=== PATIENT | female | born 1985 | race Caucasian/White ===

== ENCOUNTER 2016-05-18 14:30 | Inpatient (IN) | payer MEDICAID ==
[~2016-05-18] VITALS: Ht 160 cm; Wt 84.0 kg
[2016-05-18] MEDS ORDERED: METHYLERGONOVINE 0.2 MG INJ IM PRN (15:00)
[2016-05-18] MEDS ORDERED: LIDOCAINE 1% (MPF) 30 ML INJ INJ PRN (15:00)
[2016-05-18] MEDS ORDERED: MISOPROSTOL 200 MCG TAB PR PRN (15:00)
[2016-05-18] MEDS ORDERED: OXYTOCIN 30 UNITS/LR 500 ML IV PRN (15:00)
[2016-05-18] MEDS ORDERED: CARBOPROST 250 MCG INJ IM PRN (15:00)
[2016-05-18] MEDS ORDERED: OXYTOCIN 30 UNITS/LR 500 ML IV SCH ×2 (15:00)
[2016-05-18] MEDS ORDERED: IBUPROFEN 600 MG TAB PO PRN (15:00)
[2016-05-18 15:16] VITALS: Ht 160 cm; Wt 84.0 kg
[2016-05-18] MEDS: LACTATED RINGER'S 1,000 ML IV SCH ×2 (15:17→21:05)
[2016-05-18 15:50] LABS: BASOPHILS % 0.4 % (0.0-2.0); EOSINOPHILS # 0.1 10^3/ul (0.0-0.5); EOSINOPHILS % 1.4 % (0.0-7.0); HEMATOCRIT 36.5 % (37.0-47.0); HEMOGLOBIN 12.2 g/dl (12.0-16.0); INR 0.93; LYMPHOCYTES # 1.2 10^3/ul (0.8-2.9); LYMPHOCYTES % 14.1 % (15.0-51.0); MEAN CORPUSCULAR HEMOGLOBIN 26.9 pg (29.0-33.0); MEAN CORPUSCULAR HGB CONC 33.3 g/dl (32.0-37.0); MEAN CORPUSCULAR VOLUME 80.7 fl (82.0-101.0); MEAN PLATELET VOLUME 9.3 fl (7.4-10.4); MONOCYTE # 0.7 10^3/ul (0.3-0.9); MONOCYTES % 8.7 % (0.0-11.0); NEUTROPHIL # 6.2 10^3/ul (1.6-7.5); NEUTROPHILS % 75.4 % (39.0-77.0); PLATELET COUNT 248 10^3/UL (140-440); PROTIME 12.5 Sec (12.2-14.2); RED BLOOD COUNT 4.53 10^6/ul (4.20-5.40); RED CELL DISTRIBUTION WIDTH 14.9 % (11.5-14.5); UNCORRECTED WBC 8.3 10^3/ul (4.8-10.8); WHITE BLOOD COUNT 8.3 10^3/ul (4.8-10.8)
[2016-05-18 15:57] LABS: CONDITION 1; LH ANALYZER COMMENTS 1
[2016-05-18] MEDS ORDERED: LACTATED RINGER'S 1,000 ML IV PRN (20:00)
[2016-05-18] MEDS: BUTORPHANOL 2 MG INJ IV PRN ×2 (21:02→23:11)
[2016-05-19] MEDS ORDERED: TERBUTALINE 1 ML ONE (00:20)
[2016-05-19] MEDS ORDERED: TERBUTALINE 1 MG/ML INJ SC ONE (00:30)
[2016-05-19] MEDS: LACTATED RINGER'S 1,000 ML IV SCH (00:47)
[2016-05-19] MEDS ORDERED: OXYTOCIN 30 UNITS/LR 500 ML IV SCH (01:56)
[2016-05-19] MEDS: LACTATED RINGER'S 1,000 ML IV* SCH ×2 (01:56→06:51)
[2016-05-19] MEDS ORDERED: MISOPROSTOL 200 MCG TAB PR PRN (02:00)
[2016-05-19] MEDS ORDERED: METHYLERGONOVINE 0.2 MG INJ IM PRN (02:00)
[2016-05-19] MEDS ORDERED: OXYCODONE/ASPIRIN (4.88/325) TAB PO PRN (02:00)
[2016-05-19] MEDS ORDERED: OXYTOCIN 30 UNITS/LR 500 ML IV PRN (02:00)
[2016-05-19] MEDS ORDERED: LANOLIN 7 GM TUBE TOP PRN (02:00)
[2016-05-19] MEDS ORDERED: CARBOPROST 250 MCG INJ IM PRN (02:00)
--- NOTE | 2016-05-19 02:01 | LDN ---
Date/Time of Note Date/Time of Note DATE: 05/19/16 TIME: 01:59 Delivery Summary of a viable baby boy weighing 3870 grams, or 8# 9oz, 20" long, and with Apgars of 8/9. Placenta Delivered: Spontaneously Meconium: none Perineum intact?: Yes Anesthesia type: None Sponge & Needle done & correct: Yes All needle counts correct: Yes Any foreign bodies felt in the: No (vagina) Problems: Delivery Information Sex Infant Sex: male Apgars 1 Minute: 8 5 Minute: 9 Suctioning Nose & mouth suctioned at shanti: Yes Delee suction performed: No Umbilical Cord Umbilical cord with: 3 Vessels Cord presentations: nuchal cord Nuchal cord present X: 1 Cord Blood was obtained: Yes Mother & Baby Disposition Disposition Mom & Baby to Maternity; Good: Yes Baby to NICU: No MARITZA ROSADO MD May 19, 2016 02:01
--- NOTE | 2016-05-19 02:07 | HP ---
Date/Time of Note Date/Time of Note DATE: 05/19/16 TIME: 02:01 OB - History Hx of Present Free Text/Dictation 30 y.o. with an IUP at 41 weeks admitted today for an induction with pitocin. Estimated Due Date: May 11, 2016 : 2 Para: 1 Care: Good Care Ultrasounds: Normal mid trimester US Obstetrical Complications: None Medical Complications: None Past Family/Social History * Past Medical, Surgical, Family and Obstetric Histories reviewed from chart. Blood Type: O+ Rubella: immune RPR/VDRL: Negative GBS Status: Negative HBsAG: Negative OB Admission Exam Vital Signs Vital Signs BP 125/71 T= 98.0 Physical Exam HEENT: WNL Heart: Rhythm Normal Lungs: Clear Abdomen: WNL Extremities: Edema (1+) Reflexes: Normal Cervical Dilatation: 2cm Effacement: Other (60%) Station: -2 Membranes: Intact Amniotic Fluid: Clear Heart Rate: 130's Accelerations: Accelerations Present Decelerations: No Decelerations Varibility: Moderate Contractions on Admission: >10 Minutes Apart Last 72 hours Lab Results CBC & BMP 05/18/16 15:02 OB Assessment/Plan Reason for admission: induction of labor, other (postdates) Plan: Induction Induction Method: per Pitocin Protocol MAIRTZA ROSADO MD May 19, 2016 02:07
[2016-05-19 04:00] VITALS: BP 119/58; PULSE 66; RESP 18
[2016-05-19] MEDS: IBUPROFEN 600 MG TAB PO SCH ×4 (06:13→23:57)
[2016-05-19 08:30] VITALS: BP 102/58; PULSE 76; RESP 18
[2016-05-19 12:00] VITALS: BP 105/53; PULSE 81; RESP 18
[2016-05-19 16:36] VITALS: BP 100/51; PULSE 83; RESP 83
[2016-05-19 16:41] VITALS: BP 103/56; PULSE 86; RESP 18
[2016-05-19 21:30] VITALS: BP 107/56; PULSE 82; RESP 18
[2016-05-20 04:00] VITALS: BP 99/53; PULSE 77; RESP 18
[2016-05-20] MEDS: IBUPROFEN 600 MG TAB PO SCH ×3 (05:45→17:37)
[2016-05-20 07:33] LABS: BASOPHILS % 0.5 % (0.0-2.0); EOSINOPHILS # 0.2 10^3/ul (0.0-0.5); EOSINOPHILS % 2.4 % (0.0-7.0); HEMATOCRIT 31.9 % (37.0-47.0); HEMOGLOBIN 10.7 g/dl (12.0-16.0); LYMPHOCYTES # 2.4 10^3/ul (0.8-2.9); LYMPHOCYTES % 25.6 % (15.0-51.0); MEAN CORPUSCULAR HGB CONC 33.5 g/dl (32.0-37.0); MEAN CORPUSCULAR VOLUME 80.4 fl (82.0-101.0); MEAN PLATELET VOLUME 8.9 fl (7.4-10.4); MONOCYTE # 0.7 10^3/ul (0.3-0.9); NEUTROPHILS % 64.5 % (39.0-77.0); PLATELET COUNT 206 10^3/UL (140-440); RED BLOOD COUNT 3.97 10^6/ul (4.20-5.40); UNCORRECTED WBC 9.3 10^3/ul (4.8-10.8); WHITE BLOOD COUNT 9.3 10^3/ul (4.8-10.8)
[2016-05-20 07:57] LABS: CONDITION 1; LH ANALYZER COMMENTS 1
[2016-05-20 08:00] VITALS: BP 103/56; PULSE 83; RESP 18
--- NOTE | 2016-05-20 14:02 | PN ---
Date/Time of Note Date/Time of Note DATE: 05/20/16 TIME: 14:01 OB Subjective Subjective Subjective day 1 Afebrile, abdomen soft, uterus firm, lochia normal, extremity normal. OB Assessment/Plan Induction Method: other (plan of discharge a.m. discussed with the patient) NIKA GUTIERREZ MD May 20, 2016 14:02
[2016-05-20 16:00] VITALS: BP 109/62; PULSE 80; RESP 18
[2016-05-20 20:00] VITALS: BP 122/60; PULSE 77; RESP 18
[2016-05-21] MEDS: IBUPROFEN 600 MG TAB PO SCH ×3 (00:12→12:22)
[2016-05-21 04:25] VITALS: BP 111/62; PULSE 78; RESP 18
[2016-05-21 07:40] VITALS: BP 97/56; PULSE 69; RESP 20
[2016-05-21] MEDS ORDERED: DIPHTH/TET/ACEL PERTUSS (ADULT) 0.5 ML VIAL IM* ONE (09:00)
--- NOTE | 2016-05-21 09:07 | PD.PPDC ---
SOLAR PANEL INSTALLER Discharge Instruction Condition Patient Condition: Good Diet Diet: Resume Regular Diet Follow-up Follow-up with Physician: 2, Week/Weeks Return to clinic for HOGSHEAD COOPER Instructions: Fever greater than 101 Worsening abdominal pain More than 2 pads per hour OB Instructions: Breast Tenderness Blurried Vision Headache NIKA GUTIERREZ MD May 21, 2016 09:07
--- NOTE | 2016-05-21 09:10 | DS ---
Date/Time of Note Date/Time of Note DATE: 05/21/16 TIME: 09:08 Obstetrical Discharge Record Final Diagnosis Final Diagnosis: Term delivered Vaginal Delivery Obstetrical Delivery: Spontaneous Condition on Discharge Physical Assessment Last Vitals: Day 2 post normal vaginal delivery afebrile vital sign stable, abdomen soft, uterus firm, lochia normal, no complaint of urination or of bowel movement discharged home with a follow-up instructions to be seen at the clinic in 2 weeks advised to continue taking vitamin and iron supplement Voiding: Yes Bowel Movement: Yes Breast: Soft, non-tender, Filling Fundus: Firm Calf Tenderness: No Patient Condition: Good NIKA GUTIERREZ MD May 21, 2016 09:10
--- NOTE | 2016-05-21 21:28 | NSTRPT ---
NST Information Datetime Report Generated by CPN: 05/21/2016 21:28 Datetime: 05/16/2016 10:30 NST Information EGA: 40.5 Test Number: 8 Time on Monitor: 05/16/2016 11:03 Time off Monitor: 05/16/2016 11:28 NST Duration (Min): 25 Reason for NST: Other Reason for NST Other: Abnormal AFP/ post dates Test and Monitor Explained: Monitor Explained; Test Explained; Verbalized Understanding Pulse: 97 Resp: 19 SBP: 123 DBP: 62 Test Evaluation NST Interventions: None Patient States Movement: Present Contraction Frequency: x1 FHR Baseline : 130 Variability: Moderate 6-25bpm Accelerations: 15X15 Decelerations: None FHR Category: Category I NST Results: Reactive Comments: pt to u/s. MARK 16.7, cephalic Pt to be induced on 05/18/16. 1130-Pt Home undelivered with LABOR precautions. Kick Count in structions reviewed. Pt states understanding. No further questions asked at this time. Electronically Signed By E-Signature: with User ID: [id number] Datetime: 05/13/2016 13:51 NST Information EGA: 40.2 NST Duration (Min): 25 Datetime: 05/09/2016 08:47 NST Information EGA: 39.5 NST Duration (Min): 23 Datetime: 05/06/2016 13:44 NST Information EGA: 39.2 NST Duration (Min): 27 Datetime: 05/02/2016 08:30 NST Information EGA: 38.5 NST Duration (Min): 38 Datetime: 04/29/2016 09:54 NST Information EGA: 38.2 NST Duration (Min): 35 Datetime: 04/25/2016 08:35 NST Information EGA: 37.5 NST Duration (Min): 29 Datetime: 04/22/2016 13:08 NST Information EGA: 37.2 Datetime: 04/22/2016 13:02 NST Duration (Min): 28
== END 2016-05-21 13:50 | disposition home or self-care (01) | DRG 775 ==
LOC: L-D 14:30 → PP1 05-19 03:44
PROVIDERS: ADMIT Obstetrics & Gynecology; ATTEND Obstetrics & Gynecology
PROC: 3E033VJ Introduction of Other Hormone into Peripheral Vein, Percutaneous Approach (ICD-10-PCS; 2016-05-18)
PROC: 10E0XZZ Delivery of Products of Conception, External Approach (ICD-10-PCS; principal; 2016-05-19)
DX: O48.0 Post-term pregnancy (principal); O69.1XX0 Labor and delivery complicated by cord around neck, with compression, not applicable or unspecified; Z3A.41 41 weeks gestation of pregnancy; Z37.0 Single live birth
CPT/HCPCS: 85025; 85610; 85730; 86592; 86900; 86901; 87340; 90715; 99464; J2590; J3105; J7120

== ENCOUNTER 2016-05-24 23:43 | Inpatient (IN) | payer MEDICAID ==
[~2016-05-24] VITALS: Ht 165.1 cm; Wt 70.0 kg
[2016-05-24 23:48] VITALS: Ht 165.1 cm; Wt 70.0 kg
[2016-05-25] VITALS (13 sets, daily range): BP systolic 95–132; BP diastolic 58–78; PULSE 64–92; RESP 19–29
[2016-05-25] MEDS ORDERED: SOD CHLORIDE 0.9% 1,000 ML IV STA (00:12)
[2016-05-25 00:50] LABS: ALBUMIN 3.2 g/dl (3.3-4.9)
--- NOTE | 2016-05-25 00:50 | HP ---
Date/Time of Note Date/Time of Note DATE: 05/25/16 TIME: 00:44 Assessment/Plan VTE Prophylaxis VTE Prophylaxis Intervention: ambulation, SCD's Lines/Catheters IV Catheter Type (from [facility]): Peripheral IV Assessment/Plan Chief Complaint/Hosp Course Delayed Hemorrhage Retained Products of Conception Problems: Assessment/Plan Discussed with pt results of U/S. Likely hemorrhage 2/2 retained products of conception. Recommend evacuating the uterus with D&C. Risks, benefits and alternatives of planned procedure were discussed with the patient in detail, including the risks of pain, infection, damage to nearby organs/tissues/ structures, uterine perforation possibly requiring exploratory laparotomy and bleeding possibly requiring blood transfusion or hysterectomy. Blood transfusion risks, including infectious risks and transfusion-related reactions also discussed. Consent process performed with Macedonian interpretation from ED ROMEO Olguin. Written consent for procedure obtained. NPO in anticipation of procedure. Pt w/2 IVs and typed and crossed x2u PRBCs OR contacted. Will proceed to OR for procedure [facility] Will admit postop for observation of bleeding, repeat CBC and monitoring of sxs Primary OB, Dr. Mondragon will be notified of pt procedure and admission. HPI/ROS Admit Date/Time Admit Date/Time Hx of Present Illness INFECTION CONTROL NURSE Pt is a 30yo on PPD#5 s/p uncomplicated and intact perineum at 41wks GA who presents with new onset of heavy vaginal bleeding. Pt states bleeding started approximately 2hrs ago and since that time she has used 10 pads. +clots and dizziness as well. Prior to this evening, pt states her bleeding was normal. Also c/o abdominal cramping. She has been taking Ibuprofen for pain. Denies fevers or chills at home. No abnormal vaginal discharge. Patient's course was uncomplicated and pt was discharged home on PPD# 2. Hemoglobin post-delivery 10.7 PROCEDURE: Ultrasound examination of the pelvis CLINICAL INDICATION: Vaginal hemorrhage status post delivery TECHNIQUE: Ultrasound examination of the pelvis. COMPARISON: None FINDINGS: Thickened endometrium measures 55 mm, perhaps representing retained products of conception. Uterus measures 171 x 102 x 131 mm. Right ovary measures 37 x 21 x 32 mm. The left ovary is not visualized. Small amount of free fluid in the right adnexa IMPRESSION: 55 mm thickness of the endometrium suggests retained products of conception. PMH/Family/Social Past Medical History Medical History: no pertinent history Past Surgical History Past Surgical Hx: no surgical history Family History Significant Family History: no pertinent family hx Social History Alcohol Use: none Smoking Status: Never smoker Drug Use: none Exam/Review of Systems Vital Signs Vitals Vital Signs Date Time Temp Pulse Resp B/P Pulse Ox O2 Delivery O2 Flow Rate FiO2 05/25/16 00:15 75 19 135/78 97 Room Air 05/24/16 23:48 99.0 Exam Constitutional: alert, distress (extremely afraid due to the bleeding), oriented Respiratory: clear to auscultation Cardiovascular: regular rate and rhythm Gastrointestinal: bowel sounds, other (FF 1FB below umbilicus), soft, tender ( mild TTP in infraumbilical region diffusely), No distended, No rebound or guarding Genitourinary - Female: nl external genitalia, other (No vaginal or perineal lacerations noted. SSE: large clot at os, approx 10ml of blood in the vault. On SVE, cervix 3cm dilated, clot palpable in intracervical region), uterus (at fundus and on abdominal palpation over uterus), No CMT Extremities: No calf tenderness, No edema Additional Comments Hgb 10.8, Plts 283 PT 12.5, PTT 25.2, INR 0.93 EILEEN TAVERAS MD May 25, 2016 00:50
[2016-05-25 00:51] LABS: POTASSIUM 3.5 mmol/L (3.5-5.1)
[2016-05-25 00:53] LABS: ALBUMIN/GLOBULIN RATIO 1.1; CREATININE 0.6 mg/dl (0.44-1.00); TOTAL PROTEIN 6.1 g/dl (6.1-8.1)
[2016-05-25 00:54] LABS: CALCIUM 8.5 mg/dl (8.4-10.2)
--- NOTE | 2016-05-25 01:15 | RADRPT ---
PROCEDURE: Ultrasound examination of the pelvis CLINICAL INDICATION: Vaginal hemorrhage status post delivery TECHNIQUE: Ultrasound examination of the pelvis. COMPARISON: None FINDINGS: Thickened endometrium measures 55 mm, perhaps representing retained products of conception. Uterus m easures 171 x 102 x 131 mm. Right ovary measures 37 x 21 x 32 mm. The left ovary is not visualized. Small amount of free fluid in the right adnexa IMPRESSION: 55 mm thickness of the endometrium suggests retained products of conception. RPTAT: [facility]U Physician Connie Date Time Electronically viewed and signed by Physician Connie on 05/25/2016 01:15 RS/
[2016-05-25 01:16] LABS: WHITE BLOOD COUNT 13.9 10^3/ul (4.8-10.8)
[2016-05-25 01:17] LABS: HEMATOCRIT 33.6 % (37.0-47.0); HEMOGLOBIN 10.8 g/dl (12.0-16.0); MEAN CORPUSCULAR HEMOGLOBIN 26.3 pg (29.0-33.0); MEAN CORPUSCULAR HGB CONC 32.1 g/dl (32.0-37.0)
[2016-05-25 01:18] LABS: BASOPHILS % 0.4 % (0.0-2.0); EOSINOPHILS % 2.9 % (0.0-7.0); LYMPHOCYTES % 21.3 % (15.0-51.0); MEAN PLATELET VOLUME 10.5 fl (7.4-10.4); MONOCYTES % 5.6 % (0.0-11.0); NEUTROPHILS % 68.7 % (39.0-77.0); PLATELET COUNT 283 10^3/UL (140-440)
[2016-05-25 01:19] LABS: BASOPHIL # 0.1 10^3/ul (0.0-0.1); EOSINOPHILS # 0.4 10^3/ul (0.0-0.5); MONOCYTE # 0.8 10^3/ul (0.3-0.9); NEUTROPHIL # 9.5 10^3/ul (1.6-7.5)
[2016-05-25 01:20] LABS: INR 0.93; PROTIME 12.5 Sec (12.2-14.2); UNCORRECTED WBC 13.9 10^3/ul (4.8-10.8)
[2016-05-25 01:21] LABS: PARTIAL THROMBOPLASTIN TIME 25.2 Sec (25.0-35.0)
[2016-05-25] MEDS ORDERED: KETOROLAC 30 MG INJ IV STA (01:30)
--- NOTE | 2016-05-25 01:53 | ERA ---
ER Documentation Chief Complaint Date/Time DATE: 05/25/16 TIME: 01:49 Chief Complaint Vaginal bleed Delivered Thursday HPI Patient is a 30-year-old female, who presents with heavy vaginal bleeding which started 2 hours ago. She was noted to be losing blood while walking in the emergency department. Patient states over the last 2 hours she has soaked through 10 pads. She reports passing large blood clots. Patient reports some nausea but denies any vomiting. She does feel dizzy but denies any loss of consciousness. Patient also complaining of pain in the suprapubic region. Patient has some abdominal cramping. She states that she had a normal vaginal delivery on 05/19/16 and normal . OBGYN= Dr. Giancarlo KRUEGER All systems reviewed and are negative except as per history of present illness. Medications Home Meds No Active Prescriptions or Reported Meds Allergies Allergies: Coded Allergies: No Known Allergy (Unverified , 05/18/16) PMhx/Soc Medical and Surgical Hx: pt denies Medical Hx, pt denies Surgical Hx Hx Alcohol Use: No Hx Substance Use: No Hx Tobacco Use: No Smoking Status: Never smoker FmHx Family History: No diabetes Physical Exam Vitals Vital Signs Date Time Temp Pulse Resp B/P Pulse Ox O2 Delivery O2 Flow Rate FiO2 05/25/16 01:32 87 19 115/76 100 Room Air 05/25/16 00:15 75 19 135/78 97 Room Air 05/24/16 23:48 99.0 85 18 155/80 97 Physical Exam GENERAL: Well-developed, well-nourished female. Appears in no acute distress. HEAD: Normocephalic, atraumatic. EYES: Pupils are equally reactive bilaterally. EOMs grossly intact. No conjunctival erythema. ENT: Moist mucous membranes. No uvula deviation. No kissing tonsils. NECK: Supple. No meningismus. Normal range of motion of the neck. LUNG: Clear to auscultation bilaterally. No rhonchi, wheezing, rales or coarse breath sounds. HEART: Regular rate and rhythm. No murmurs, rubs or gallops. ABDOMEN: No scars, ecchymosis or rashes noted. Soft. Uterus palpated. Tender to palpation in suprapubic region. Positive bowel sounds in all four quadrants. No rebound tenderness, no guarding. (-) McBurney's point tenderness. No CVA tenderness. PELVIC EXAM: Observed by myself. Performed by Dr. Aguirre, [employer] HUNTER. Normal external female genitalia. Active vaginal bleeding with large blood clot passage. The patient's cervical os was noted to be open during speculum exam. EXTREMITIES: Equal pulses bilaterally. No peripheral clubbing, cyanosis or edema. No unilateral leg swelling. NEUROLOGIC: Alert and oriented. Moving all four extremities without any difficulty. Normal speech. Steady gait. SKIN: Normal color. Warm and dry. No rashes or lesions. Result Diagram: 05/25/162905/25/1629 Results 24 hrs Laboratory Tests Test 05/25/16 00:30 Activated Partial Thromboplast Time 25.2Sec Alanine Aminotransferase (ALT/SGPT) 39IU/L Albumin 3.2g/dl Albumin/Globulin Ratio 1.10 Alkaline Phosphatase 291IU/L Anion Gap 16 Aspartate Amino Transf (AST/SGOT) 25IU/L Basophils # 0.110^3/ul Basophils % 0.4% Blood Urea Nitrogen 16mg/dl Calcium Level 8.5mg/dl Carbon Dioxide Level 20mmol/L Chloride Level 108mmol/L Creatinine 0.60mg/dl Direct Bilirubin 0.00mg/dl Eosinophils # 0.410^3/ul Eosinophils % 2.9% Globulin 2.90g/dl Glucose Level 103mg/dl Hematocrit 33.6% Hemoglobin 10.8g/dl INR International Normalized Ratio 0.93 Indirect Bilirubin 0.0mg/dl Lymphocytes # 3.010^3/ul Lymphocytes % 21.3% Mean Corpuscular Hemoglobin 26.3pg Mean Corpuscular Hemoglobin Concent 32.1g/dl Mean Corpuscular Volume 82.0fl Mean Platelet Volume 10.5fl Monocytes # 0.810^3/ul Monocytes % 5.6% Neutrophils # 9.510^3/ul Neutrophils % 68.7% Nucleated Red Blood Cells # 0.010^3/ul Nucleated Red Blood Cells % 0.0/100WBC Platelet Count 34163^3/UL Potassium Level 3.5mmol/L Prothrombin Time 12.5Sec Prothrombin Time Ratio 1.0 Red Blood Count 4.1010^6/ul Red Cell Distribution Width 41.0% Sodium Level 140mmol/L Total Bilirubin 0.0mg/dl Total Protein 6.1g/dl White Blood Count 13.910^3/ul Current Medications Medications (Trade) Dose Ordered Sig/Luís Route PRN Reason Start Time Stop Time Status Last Admin Dose Admin Sodium Chloride (NS) 1,000 ml @ 1,000 mls/hr Q1H STAT IV 05/25/16 00:12 05/25/16 01:11 DC 05/25/16 00:39 Ketorolac Tromethamine (Toradol) 30 mg ONCE STAT IV 05/25/16 01:30 05/25/16 01:32 DC 05/25/16 01:38 Misoprostol 400 mcg 400 mcg ONCE ONCE FL 05/25/16 02:30 05/25/16 02:45 DC Oxytocin/Lactated Ringer's 500 ml @ 125 mls/hr Q4H IV 05/25/16 02:30 05/25/16 05:27 Misoprostol (Cytotec) 400 mcg ONCE ONCE FL 05/25/16 03:00 05/25/16 03:11 DC Procedures/MDM ED COURSE: The patient was stable throughout ED course. I kept the patient and/or family informed of laboratory and diagnostic imaging results throughout the ED course. DIAGNOSTIC IMAGING: Read by radiologist. DIAGNOSTIC IMAGING REPORT Patient: OLIMPIA ROMAN : 1985 Age: 30 Sex: F MR #: [id number] DOS: 05/25/16 0012 Ordering MD: MONTEZ CHAU PA-C Location: [facility] Room/Bed: PROCEDURE: Ultrasound examination of the pelvis CLINICAL INDICATION: Vaginal hemorrhage status post delivery TECHNIQUE: Ultrasound examination of the pelvis. COMPARISON: None FINDINGS: Thickened endometrium measures 55 mm, perhaps representing retained products of conception. Uterus measures 171 x 102 x 131 mm. Right ovary measures 37 x 21 x 32 mm. The left ovary is not visualized. Small amount of free fluid in the right adnexa IMPRESSION: 55 mm thickness of the endometrium suggests retained products of conception. RPTAT: [facility]U Physician Connie Date Time Electronically viewed and signed by Physician Connie on 05/25/2016 01:15 RS/ CC: MONTEZ CHAU PA-C MEDICATIONS GIVEN: Toradol IM Patient tolerated medication well with no adverse reactions. Patient reported improvement in pain. MEDICAL DECISION MAKING: Patient is a 30 year ol female, , who presents with severe vaginal bleeding. Patient had vaginal delivery on 05/19/16. Patient states that the bleeding started 2 hours ago. Thus far, patient was used 10 pads. Patient was noted to be actively bleeding and leaving trail of blood while walking in the emergency department. Two IVs were placed. Patient was given IV fluids. Patient was type and crossed with 2 units of packed RBCs available. OBGYN director of business operations, Dr. Aguirre was consulted. Dr. Aguirre performed a pelvic exam which revealed significant vaginal bleeding and passage of large blood clots. Patient's os was noted to be open. Hgb level was noted to be 10.8. WBC count was noted to be 13.9. Pelvic ultrasound showed 55 mm thickness of the endometrium suggests retained products of conception. At this time, the patient's presentation is most consistent with post- hemorrhage secondary to retained products of conception. I discussed these findings with Dr. Aguirre. The patient was admitted for D&C. Patient will be admitted during OBGYN Dr. Mondragon per Dr. Aguirre. Patient was scheduled to go to the OR [facility]. Patient consented for D&C by Dr. Aguirre. Patient was stable throughout ED course. Departure Diagnosis: Primary Impression: Retained products of conception Additional Impression: hemorrhage Qualified Code: O72.1 - hemorrhage, unspecified type Condition: Stable Additional Instructions: Patient will be admitted for D&C. Admitting doctor Dr. Mondragon, [employer] HUNTER, per Dr. Aguirre (laborist director of business operations). MONTEZ CHAU PA-C May 25, 2016 01:53
[2016-05-25] MEDS ORDERED: OXYTOCIN 30 UNITS/LR 500 ML IV SCH (02:30)
[2016-05-25] MEDS ORDERED: MISOPROSTOL 100 MCG TAB PR ONE (02:30)
[2016-05-25] MEDS ORDERED: MISOPROSTOL 200 MCG TAB PR ONE (03:00)
[2016-05-25] MEDS ORDERED: ONDANSETRON 4 MG INJ IV PRN (04:00)
[2016-05-25] MEDS ORDERED: METOCLOPRAMIDE 10 MG INJ IV PRN (04:00)
[2016-05-25] MEDS ORDERED: DOCUSATE SODIUM 100 MG CAP PO PRN (04:00)
[2016-05-25] MEDS ORDERED: NACL 0.9% 3 ML SYG IV SCH (04:00)
[2016-05-25] MEDS ORDERED: HYDROCODONE/APAP (5/325) TAB PO PRN (04:00)
--- NOTE | 2016-05-25 04:04 | OPR ---
Date/Time of Note Date/Time of Note DATE: 05/25/16 TIME: 03:54 Operative Report Procedure Date: May 25, 2016 Preoperative Diagnosis 1)Delayed Hemorrhage 2)Retained Products of Conception Postoperative Diagnosis Same Operation Performed Dilation and Curettage with suction and sharp curettage Surgeon: EILEEN TAVERAS MD Anesthesia: spinal Anesthesiologist: JOYCE ASHTON DO Estimated Blood Loss: other (100ml) Specimens Uterine Curettings Tubes/Drains Indwelling Joseph Catheter Complications None apparent Pt Condition Post Procedure: stable Disposition: PACU Indications 30yo presented to the ED 5d s/p uncomplicated normal spontaneous vaginal delivery with increasing abdominal pain and heavy vaginal bleeding x2 hours. Pelvic ultrasound revealed a thickened endometrial stripe of 55mm concerning for retained products of conception. Operative Findings Products of conception noted in the suction tubing during the procedure. All four quadrants of the uterus was found to have a gritty texture at the end of the procedure. The uterine fundus which was initially immediately below the umbilicus was firm and approximately 4cm inferior to the umbilicus following the procedure. Procedure Description The patient was brought to the operating room with an IV in place, placed on the operating room table in an upright position and spinal anesthesia was administered. She was then placed in the dorsal supine position and positioned in sisi stirrups once adequate anesthesia had been obtained. The patient was prepped and draped and an indwelling joseph catheter was inserted in the normal sterile fashion. A weighted speculum was placed in the vaginal vault. The cervix was grasped with a ring forcep at the 12 o'clock position. A size 12mm cannula was inserted through the dilated cervix into the uterus with extreme caution. The uterus was evacuated using the electric suction device. A large sharp curet was also used to explore the uterus. Currettings were collected on a Telfa pad and handed off the field to be sent to pathology along with the specimen from the suction device. A size 10mm cannula was then used to evacuate the uterus following sharp exploration. Once all four quadrants of the uterus had achieved a gritty texture, the ring forcep was removed and the cervix was noted to be hemostatic. Minimal vaginal bleeding was noted and the speculum was removed. The patient's perineum was cleaned and her legs were brought back down to the full supine position. She was awakened and transported to the recovery room in excellent condition. EILEEN TAVERAS MD May 25, 2016 04:04
[2016-05-25 05:29] LABS: ADD UMIC YES; URINE BILIRUBIN (Dip) NEGATIVE (NEGATIVE); URINE BLOOD (Dip) 3+ (NEGATIVE); URINE COLOR LT. YELLOW (YELLOW); URINE GLUCOSE (Dip) NEGATIVE (NEGATIVE); URINE KETONES (Dip) NEGATIVE (NEGATIVE); URINE LEUKOCYTE ESTERASE (Dip) NEGATIVE (NEGATIVE); URINE NITRITE (Dip) NEGATIVE (NEGATIVE); URINE TOTAL PROTEIN (Dip) NEGATIVE (NEGATIVE); URINE UROBILINOGEN (Dip) 0.2 E.U./dL (0.1-1.0)
[2016-05-25 05:52] LABS: SQUAMOUS EPITHELIAL CELL,UR FEW; URINE RBCS >50 /HPF (0)
[2016-05-25 07:46] LABS: INR 1.02; PROTIME 13.4 Sec (12.2-14.2)
[2016-05-25 07:47] LABS: PARTIAL THROMBOPLASTIN TIME 25.8 Sec (25.0-35.0)
[2016-05-25] MEDS: ACETAMINOPHEN 325 MG TAB PO PRN ×2 (08:07→15:33)
[2016-05-25] MEDS: HYDROCODONE/APAP (5/325) TAB PO PRN ×2 (12:23→13:00)
--- NOTE | 2016-05-25 18:04 | PD.PPDC ---
TROUBLE DISPATCHER Discharge Instruction Condition Patient Condition: Good Diet Diet: Resume Regular Diet Activity/Restrictions Activity: Normal Activity May Shower Restrictions: No Exercising No Lifting No Driving No Sexual Activity Nothing in the Vagina No Barnum No Tampons, douche Follow-up Follow-up with Physician: 1, Week/Weeks Return to clinic for DOOR LINER HELPER Instructions: Fever greater than 101 Worsening abdominal pain More than 2 pads per hour OB Instructions: Breast Tenderness Blurried Vision Headache NIKA GUTIERREZ MD May 25, 2016 18:04
--- NOTE | 2016-05-25 18:18 | DS ---
Date/Time of Note Date/Time of Note DATE: 05/25/16 TIME: 18:09 Discharge Summary Admission/Discharge Info Admit Date/Time May 25, 2016 at 03:42 Discharge Date/Time May 25 at 1810 Final Diagnosis Post D&C for possible retained placenta Patient Condition: Good Procedures Dilatation and suction curettage followed with medium-sized sharp curettings Hx of Present Illness OFFICE REP Pt is a 30yo on PPD#5 s/p uncomplicated and intact perineum at 41wks GA who presents with new onset of heavy vaginal bleeding. Pt states bleeding started approximately 2hrs ago and since that time she has used 10 pads. +clots and dizziness as well. Prior to this evening, pt states her bleeding was normal. Also c/o abdominal cramping. She has been taking Ibuprofen for pain. Denies fevers or chills at home. No abnormal vaginal discharge. Patient's course was uncomplicated and pt was discharged home on PPD# 2. Hemoglobin post-delivery 10.7 PROCEDURE: Ultrasound examination of the pelvis CLINICAL INDICATION: Vaginal hemorrhage status post delivery TECHNIQUE: Ultrasound examination of the pelvis. COMPARISON: None FINDINGS: Thickened endometrium measures 55 mm, perhaps representing retained products of conception. Uterus measures 171 x 102 x 131 mm. Right ovary measures 37 x 21 x 32 mm. The left ovary is not visualized. Small amount of free fluid in the right adnexa IMPRESSION: 55 mm thickness of the endometrium suggests retained products of conception. Hospital Course Delayed Hemorrhage Retained Products of Conception Post D&C hospital course uneventful except patient is complaining of mild spinal head ache recommended to stay in the hospital over night on flat supine position but patient declined further stay in the hospital concern about feeding her baby would like to discharge toneric' advised if headache continues by tomorrow return to the hospital for possible blood patch also she received a prescription for analgesics to relieve the headache' she has appointment with [facility] for follow-up Home Meds No Active Prescriptions or Reported Meds Pending Labs Laboratory Tests Test 05/25/16 00:30 05/25/16 05:00 05/25/16 06:37 Activated Partial Thromboplast Time 25.2Sec (25.0-35.0) 25.8Sec (25.0-35.0) Alanine Aminotransferase (ALT/SGPT) 39IU/L (13-69) Albumin 3.2g/dl (3.3-4.9) Albumin/Globulin Ratio 1.10 Alkaline Phosphatase 291IU/L (42-121) Anion Gap 16 (8-16) Aspartate Amino Transf (AST/SGOT) 25IU/L (15-46) Basophils # 0.110^3/ul (0.0-0.1) Basophils % 0.4% (0.0-2.0) Blood Urea Nitrogen 16mg/dl (7-20) Calcium Level 8.5mg/dl (8.4-10.2) Carbon Dioxide Level 20mmol/L (21-31) Chloride Level 108mmol/L (97-110) Creatinine 0.60mg/dl (0.44-1.00) Direct Bilirubin 0.00mg/dl (0.00-0.20) Eosinophils # 0.410^3/ul (0.0-0.5) Eosinophils % 2.9% (0.0-7.0) Globulin 2.90g/dl (1.3-3.2) Glucose Level 103mg/dl (70-220) Hematocrit 33.6% (37.0-47.0) Hemoglobin 10.8g/dl (12.0-16.0) INR International Normalized Ratio 0.93 1.02 Indirect Bilirubin 0.0mg/dl (0-1.1) Lymphocytes # 3.010^3/ul (0.8-2.9) Lymphocytes % 21.3% (15.0-51.0) Mean Corpuscular Hemoglobin 26.3pg (29.0-33.0) Mean Corpuscular Hemoglobin Concent 32.1g/dl (32.0-37.0) Mean Corpuscular Volume 82.0fl (82.0-101.0) Mean Platelet Volume 10.5fl (7.4-10.4) Monocytes # 0.810^3/ul (0.3-0.9) Monocytes % 5.6% (0.0-11.0) Neutrophils # 9.510^3/ul (1.6-7.5) Neutrophils % 68.7% (39.0-77.0) Nucleated Red Blood Cells # 0.010^3/ul (0.0-0.0) Nucleated Red Blood Cells % 0.0/100WBC (0.0-0.0) Platelet Count 48689^3/UL (140-440) Potassium Level 3.5mmol/L (3.5-5.1) Prothrombin Time 12.5Sec (12.2-14.2) 13.4Sec (12.2-14.2) Prothrombin Time Ratio 1.0 1.0 Red Blood Count 4.1010^6/ul (4.20-5.40) Red Cell Distribution Width 41.0% (11.5-14.5) Sodium Level 140mmol/L (135-144) Total Bilirubin 0.0mg/dl (0.2-1.3) Total Protein 6.1g/dl (6.1-8.1) White Blood Count 13.910^3/ul (4.8-10.8) Urine Bilirubin NEGATIVE (NEGATIVE) Urine Clarity CLEAR (CLEAR) Urine Color LT. YELLOW (YELLOW) Urine Glucose NEGATIVE% (NEGATIVE) Urine Hemoglobin 3+ (NEGATIVE) Urine Ketones NEGATIVE (NEGATIVE) Urine Leukocyte Esterase NEGATIVE (NEGATIVE) Urine Microscopic RBC >50/HPF (0) Urine Microscopic WBC 0-2/HPF (0) Urine Nitrite NEGATIVE (NEGATIVE) Urine Specific Adams 1.015 (1.003-1.030) Urine Squamous Epithelial Cells FEW Urine Total Protein NEGATIVE (NEGATIVE) Urine Urobilinogen 0.2 E.U./dL (0.1-1.0) Urine pH 6.0 (5.0-9.0) NIKA GUTIERREZ MD May 25, 2016 18:18
== END 2016-05-25 18:45 | disposition home or self-care (01) | DRG 769 ==
LOC: FTE 23:43 → OBG 05-25 03:42
PROVIDERS: ADMIT Obstetrics & Gynecology; ATTEND Obstetrics & Gynecology
PROC: 10D17ZZ Extraction of Products of Conception, Retained, Via Natural or Artificial Opening (ICD-10-PCS; principal; 2016-05-25 02:30)
DX: O72.2 Delayed and secondary postpartum hemorrhage (principal)
CPT/HCPCS: 76856; 80053; 81001; 81003; 85025; 85610; 85730; 86850; 86900; 86901; 86920; 87086; 88305; J0690; J1885; J2250; J2590; J7030